=== PATIENT | female | born 1970 | race Hispanic/Latino ===

== ENCOUNTER 2018-10-25 03:54 | Emergency (ER) | payer OTHER ==
[2018-10-25] MEDS ORDERED: ONDANSETRON HCL 4 MG/2 ML VIAL ONE (04:45)
[2018-10-25] MEDS ORDERED: SODIUM CHLORIDE 0.9% 1000ML 1,000 ML IV ONE (04:45)
[2018-10-25] MEDS ORDERED: MORPHINE SULFATE 4 MG/1ML SYG ONE (04:45)
[2018-10-25 05:06] LABS: BASOPHILS % (AUTO) 0.6 % (0.0-5.0); EOSINOPHILS % (AUTO) 1.4 % (0.0-8.0); LYMPHOCYTES % (AUTO) 26.3 % (21.0-51.0); MEAN CORPUSCULAR HEMOGLOBIN 29.1 pg (27.0-33.0); MEAN CORPUSCULAR HGB CONC 33.7 g/dL (32.0-36.0); MEAN CORPUSCULAR VOLUME 86.3 fL (79-99); MONOCYTES % (AUTO) 8.2 % (3.0-13.0); NEUTROPHILS % (AUTO) 63.5 % (40.0-77.0); PLATELET COUNT (AUTO) 286 K/uL (130-400); RED BLOOD CELL COUNT(AUTO) 5.21 MIL/uL (4.00-5.50); RED CELL DISTRIBUTION WIDTH 12.8 % (11.0-15.5); WHITE BLOOD COUNT (AUTO) 11.1 K/uL (4.8-10.8)
[2018-10-25 05:28] LABS: BILIRUBIN,DIRECT 0.1 mg/dL (0.0-0.3); BILIRUBIN,TOTAL 0.5 mg/dL (0.2-1.0); CREATININE 0.6 mg/dL (0.5-1.5); TOTAL PROTEIN, SERUM 6.5 g/dL (6.0-8.3)
[2018-10-25] MEDS ORDERED: MAGNESIUM OXIDE 400 MG TABLET PO ONE (06:12)
[2018-10-25] MEDS ORDERED: POTASSIUM BICARB/CIT AC 25 MEQ TABLET.EFF ONE (06:13)
[2018-10-25] MEDS ORDERED: KETOROLAC TROMETHAMINE 60 MG/2 ML VIAL ONE (06:41)
== END 2018-10-25 07:19 | disposition home or self-care (01) ==
LOC: EDH 03:54
DX: K52.9 Noninfective gastroenteritis and colitis, unspecified (principal); E11.9 Type 2 diabetes mellitus without complications; Z90.49 Acquired absence of other specified parts of digestive tract; Z98.890 Other specified postprocedural states; Z79.4 Long term (current) use of insulin
CPT/HCPCS: 36415; 74176; 80048; 80076; 83690; 85025; 96361; 96374; 96375; 99285; J1885; J2270; J2405; J7030

== ENCOUNTER 2018-10-27 07:38 | Inpatient (IN) | payer SELFPAY ==
[~2018-10-27] VITALS: Ht 152.4 cm; Wt 95.4 kg
[2018-10-27 08:09] LABS: BASOPHILS % (AUTO) 0.8 % (0.0-5.0); EOSINOPHILS % (AUTO) 2.1 % (0.0-8.0); HEMATOCRIT 41.9 % (36-48); LYMPHOCYTES % (AUTO) 27.3 % (21.0-51.0); MEAN CORPUSCULAR HEMOGLOBIN 29.2 pg (27.0-33.0); MEAN CORPUSCULAR HGB CONC 33.8 g/dL (32.0-36.0); MEAN CORPUSCULAR VOLUME 86.5 fL (79-99); MONOCYTES % (AUTO) 8.3 % (3.0-13.0); NEUTROPHILS % (AUTO) 61.5 % (40.0-77.0); NUCLEATED RED BLOOD CELLS 0.1 % (0.0-0.19); PLATELET COUNT (AUTO) 278 K/uL (130-400); RED BLOOD CELL COUNT(AUTO) 4.84 MIL/uL (4.00-5.50); WHITE BLOOD COUNT (AUTO) 7.7 K/uL (4.8-10.8)
[2018-10-27 08:41] LABS: CREATININE 0.6 mg/dL (0.5-1.5); POTASSIUM 3.6 mmol/L (3.5-5.1)
[2018-10-27] MEDS ORDERED: ONDANSETRON HCL 4 MG/2 ML VIAL ONE (08:43)
[2018-10-27] MEDS ORDERED: MORPHINE SULFATE 4 MG/1ML SYG ONE (08:43)
[2018-10-27] MEDS ORDERED: SODIUM CHLORIDE 0.9% 1000ML 1,000 ML IV ONE (08:44)
[2018-10-27 08:47] LABS: ALBUMIN 2.6 g/dL (3.5-5.0); BILIRUBIN,TOTAL 0.3 mg/dL (0.2-1.0); TOTAL PROTEIN, SERUM 6.3 g/dL (6.0-8.3)
[2018-10-27 08:48] LABS: APPEARANCE,URINE SL CLOUDY (CLEAR); BILIRUBIN,URINE NEGATIVE (NEGATIVE); COLOR,URINE YELLOW (YELLOW); GLUCOSE, URINE (UA) >=1000 mg/dL (NEGATIVE); HCG,QUAL RESULT NEGATIVE (NEGATIVE); KETONES,URINE NEGATIVE (NEGATIVE); LEUKOCYTE ESTERASE ,URINE NEGATIVE (NEGATIVE); NITRATE,URINE NEGATIVE (NEGATIVE); OCCULT BLOOD,URINE MODERATE (NEGATIVE); PROTEIN,URINE NEGATIVE (NEGATIVE)
[2018-10-27 09:12] LABS: BACTERIA,URINE Many /HPF (None Seen); RBC,URINE 0-1 /HPF (0-1); SQUAMOUS EPITHELIAL CELL,UR Moderate /HPF (0-2)
[2018-10-27] MEDS ORDERED: IOHEXOL-350 75 ML VIAL IV ONE (09:24)
[2018-10-27] MEDS ORDERED: DIATR MEGLU/DIATRIZOATE SODIUM 30 ML BOTTLE ONE ×2 (09:41→09:44)
[2018-10-27] MEDS ORDERED: ZOSYN 3.375GM+NS 50ML 50 ML IV ONE (11:11)
[2018-10-27] MEDS: METRONIDAZOLE 500MG/100ML BAG 100 ML IV SCH ×2 (11:15→20:31)
[2018-10-27] MEDS ORDERED: HYDROCODONE/ACETAMINOPHEN 5/325 MG TAB PO PRN (11:15)
[2018-10-27] MEDS: INSULIN HUMULIN R 100 UNIT/ML 3ML SQ SCH ×3 (11:30→20:47)
[2018-10-27] MEDS ORDERED: MORPHINE SULFATE 2 MG/ML 1ML SYG ONE (11:35)
[2018-10-27] MEDS ORDERED: VANCOMYCIN 1GM+NS 250ML 250 ML IV ONE (12:33)
[2018-10-27 14:30] VITALS: BP 136/79
--- NOTE | 2018-10-27 14:35 | NUR ---
REPORT RECEIVED FROM DAVID HERNÁNDEZ (ED). PATIENT ADMITTED FOR C/O RECTAL PAIN. PATIENT ADMITTED UNDER DR. MCCLURE'S SERVICES FOR PERIANAL INFLAMMATION AND UNCONTROLLED DM. DR. PURI CONSULTED. ER PHYSICIAN SPOKE WITH DR. PURI. DR. PURI TO FOLLOW UP WITH PATIENT ONCE ON MED/SURG FLOOR. PATIENT STABLE AT THIS TIME.
[2018-10-27 16:00] VITALS: BP 129/72
[2018-10-27] MEDS ORDERED: INSU100I35 SQ ×2 (18:26)
[2018-10-27 19:12] VITALS: BP 135/77
[2018-10-27] MEDS ORDERED: SODIUM CHLORIDE 0.9% 250 ML IV ONE (20:29)
[2018-10-27] MEDS: FAMOTIDINE 20MG TAB 20 MG TAB PO SCH (20:32)
[2018-10-28] VITALS (23 sets, daily range): BP systolic 90–145; BP diastolic 45–81
[2018-10-28] MEDS ORDERED: KETOROLAC TROMETHAMINE 15MG/ML IV SCH (02:00)
[2018-10-28] MEDS ORDERED: ONDANSETRON HCL 4 MG/2 ML VIAL IVP PRN (02:00)
[2018-10-28] MEDS ORDERED: KETOROLAC TROMETHAMINE 15MG/ML ONE (02:04)
[2018-10-28] MEDS: METRONIDAZOLE 500MG/100ML BAG 100 ML IV SCH ×3 (03:16→19:39)
[2018-10-28 05:18] LABS: HEMATOCRIT 36.9 % (36-48); MEAN CORPUSCULAR HEMOGLOBIN 29.8 pg (27.0-33.0); MEAN CORPUSCULAR VOLUME 87.6 fL (79-99); PLATELET COUNT (AUTO) 274 K/uL (130-400); RED BLOOD CELL COUNT(AUTO) 4.21 MIL/uL (4.00-5.50); RED CELL DISTRIBUTION WIDTH 12.6 % (11.0-15.5); WHITE BLOOD COUNT (AUTO) 8.2 K/uL (4.8-10.8)
[2018-10-28 05:23] LABS: CREATININE 0.6 mg/dL (0.5-1.5); POTASSIUM 3.7 mmol/L (3.5-5.1)
[2018-10-28] MEDS ORDERED: SODIUM CHLORIDE 0.9% 1000ML 1,000 ML IV ONE (05:58)
[2018-10-28] MEDS ORDERED: LIDOCAINE PF 2% 5ML ABBOJECT ONE (06:14)
[2018-10-28] MEDS ORDERED: FENTANYL CITRATE PF 50 MCG/1 ML 2ML VIAL ONE (06:14)
[2018-10-28] MEDS ORDERED: PROPOFOL 10 MG/ML 20ML VIAL IV ONE ×2 (06:14→06:38)
[2018-10-28] MEDS ORDERED: MIDAZOLAM HCL 1 MG/ML 2ML VIAL ONE (06:22)
[2018-10-28] MEDS ORDERED: BUPIVACAINE/PF 0.5% 30ML VIAL ONE (06:26)
[2018-10-28] MEDS ORDERED: LIDOCAINE 1%-EPI 1:100,000 20 ML VIAL IJ ONE (06:26)
[2018-10-28] MEDS ORDERED: KETOROLAC TROMETHAMINE 30MG/ML ONE (06:40)
[2018-10-28] MEDS: INSULIN HUMULIN R 100 UNIT/ML 3ML SQ SCH ×4 (07:30→20:57)
[2018-10-28] MEDS: FAMOTIDINE 20MG TAB 20 MG TAB PO SCH ×2 (08:59→19:39)
[2018-10-28] MEDS: ENOXAPARIN SODIUM 40 MG/0.4 ML SYRINGE SQ SCH (09:00)
[2018-10-28] MEDS ORDERED: ACETAMINOPHEN 325 MG TAB PO PRN ×2 (09:15→13:15)
--- NOTE | 2018-10-28 11:20 | NUR ---
REGINO Leyva met with pt's daughter Codi Valdovinos [phone] who was at bedside, pt sleeping soundly. Per daughter, pt lives with her CURT Dunham, works in [employer] and is independent of [employer], drives, has no DME or in home care services. Pt has no PCP or rx coverage. Plan is home at [place] Addendum: 10/28/18 at 1123 by MADDI COOL Amended: Links added.
[2018-10-28] MEDS: TRAMADOL HCL 50 MG TABLET PO PRN (12:33)
--- NOTE | 2018-10-28 19:40 | NUR ---
ASSESS SHIFT ASSESSMENT DONE, PLEASE REFER TO CHART. DUE MEDS ADMINISTERED, TOLERATED WELL. KEPT RESTED IN BED. CALL LIGHT WITHIN REACH. WILL MONITOR PT. Addendum: 10/29/18 at 0023 by JENA ESPARZA RN RN Amended: Links added.
--- NOTE | 2018-10-28 20:40 | NUR ---
SHOWER FINISHED IV ANTIBIOTICS INFUSION, SALINE LOCKED PT. PT REQUESTED TO SHOWER. PCP MADE AWARE TO ASSIST PT.
[2018-10-29] VITALS: BP 117/58
[2018-10-29] MEDS: METRONIDAZOLE 500MG/100ML BAG 100 ML IV SCH ×3 (02:45→19:42)
--- NOTE | 2018-10-29 02:45 | NUR ---
MEDS PT RESTING WELL. NO DISTRESS NOTED. NO CONCERNS VERBALIZED. DUE IV FLAGYL HUNG. KEPT RESTED AND COMFORTABLE. CALL LIGHT WITHIN REACH. WILL MONITOR PT.
[2018-10-29 04:00] VITALS: BP 112/59
[2018-10-29 05:02] LABS: BASOPHILS % (AUTO) 0.6 % (0.0-5.0); EOSINOPHILS % (AUTO) 2.7 % (0.0-8.0); HEMATOCRIT 37.2 % (36-48); LYMPHOCYTES % (AUTO) 38.2 % (21.0-51.0); MEAN CORPUSCULAR HEMOGLOBIN 29.6 pg (27.0-33.0); MEAN CORPUSCULAR HGB CONC 33.6 g/dL (32.0-36.0); MEAN CORPUSCULAR VOLUME 88.2 fL (79-99); MONOCYTES % (AUTO) 10.1 % (3.0-13.0); NEUTROPHILS % (AUTO) 48.4 % (40.0-77.0); PLATELET COUNT (AUTO) 326 K/uL (130-400); RED BLOOD CELL COUNT(AUTO) 4.21 MIL/uL (4.00-5.50); RED CELL DISTRIBUTION WIDTH 13.2 % (11.0-15.5); WHITE BLOOD COUNT (AUTO) 6.3 K/uL (4.8-10.8)
[2018-10-29 05:08] LABS: CREATININE 0.6 mg/dL (0.5-1.5); POTASSIUM 3.6 mmol/L (3.5-5.1)
[2018-10-29] MEDS: INSULIN HUMULIN R 100 UNIT/ML 3ML SQ SCH ×4 (06:04→22:26)
--- NOTE | 2018-10-29 06:30 | NUR ---
WALK PT SEEN WALKING THE HALLWAY WITH SPOUSE. TOLERATING ACTIVITY WELL. FOR MORE CARE.
[2018-10-29] MEDS: TRAMADOL HCL 50 MG TABLET PO PRN (06:54)
[2018-10-29 07:38] VITALS: BP 146/77
[2018-10-29] MEDS: FAMOTIDINE 20MG TAB 20 MG TAB PO SCH ×2 (09:24→20:23)
[2018-10-29] MEDS: ENOXAPARIN SODIUM 40 MG/0.4 ML SYRINGE SQ SCH (09:25)
[2018-10-29 11:40] VITALS: BP 126/69
[2018-10-29 16:32] VITALS: BP 153/74
[2018-10-29 20:00] VITALS: BP 135/80
[2018-10-30] VITALS: BP 132/71
[2018-10-30] MEDS: TRAMADOL HCL 50 MG TABLET PO PRN (00:07)
[2018-10-30] MEDS: METRONIDAZOLE 500MG/100ML BAG 100 ML IV SCH ×2 (03:54→10:14)
[2018-10-30 04:11] VITALS: BP 120/65
[2018-10-30] MEDS: INSULIN HUMULIN R 100 UNIT/ML 3ML SQ SCH ×2 (05:53→12:08)
[2018-10-30 06:08] LABS: HEMATOCRIT 38.3 % (36-48); MEAN CORPUSCULAR HEMOGLOBIN 30.3 pg (27.0-33.0); MEAN CORPUSCULAR HGB CONC 34.9 g/dL (32.0-36.0); NUCLEATED RED BLOOD CELLS 0.1 % (0.0-0.19); PLATELET COUNT (AUTO) 330 K/uL (130-400); RED BLOOD CELL COUNT(AUTO) 4.41 MIL/uL (4.00-5.50); RED CELL DISTRIBUTION WIDTH 12.7 % (11.0-15.5); WHITE BLOOD COUNT (AUTO) 5.9 K/uL (4.8-10.8)
[2018-10-30 06:24] LABS: CREATININE 0.6 mg/dL (0.5-1.5); POTASSIUM 3.4 mmol/L (3.5-5.1)
[2018-10-30 08:00] VITALS: BP 128/59
[2018-10-30] MEDS: FAMOTIDINE 20MG TAB 20 MG TAB PO SCH (08:43)
[2018-10-30] MEDS: ENOXAPARIN SODIUM 40 MG/0.4 ML SYRINGE SQ SCH (08:44)
--- NOTE | 2018-10-30 09:00 | NUR ---
HYGEINE: TOOK SHOWER.
--- NOTE | 2018-10-30 09:20 | NUR ---
ACTIVITY: AMB IN HALLWAY.
--- NOTE | 2018-10-30 09:30 | NUR ---
PERIANAL ABSCESS: PT WASHED PERIANAL AREA WITH SOAP AND H20. COVERED WITH 4x4 GAUZE. MICHAELA WELL. MINIMAL PINK DRAINAGE. DENIES PAIN TO AREA. STATES TENDER WHEN SHE SITS UP.
--- NOTE | 2018-10-30 10:04 | NUR ---
ASSESSMENT: JAMESON AGUDELOP ASSESSED PT AND SBAR REPORT GIVEN, ASSESSED PT AND DISCUSSED POC FOR DISCHARGE HOME ON [address] FOR 7DAYS AND PT VERBALIZES UNDERSTANDING AND AGREES WITH POC.
[2018-10-30] MEDS ORDERED: LEVO500T2 PO (10:09)
--- NOTE | 2018-10-30 10:41 | NUR ---
DISCHARGE: INFORMED DR PURI'S PA KI CORTES ABOUT PT BEING DISCHARGED HOME AND ORDERS RECEIVED TO HAVE PT FOLLOW UP IN [address] PURI. PTMADE AWARE.
[2018-10-30 12:00] VITALS: BP 126/61
--- NOTE | 2018-10-30 15:30 | NUR ---
DISCHARGE: DISCHARGE INSTRUCTIONS GIVEN TO PT ON SELF CARE POST I&D OF PERIANAL ABSCESS,HOW TO CARE FOR IT, KEEP IT CLEAN,DIABETES CONTROL MONITOR BLOOD SUGARS AND MAINTAIN UNDER CONTROL MUCH POSSIBLE. GAVE PT PERIMETERS ON NORMAL BLOOD SUGARS. INSTRUCTED ON DIABETIC DIET, MONITOR CARBOHYDRATES AND INCREASE FLUID INTAKE. TO CONTINUE WITH INSULIN PRIOR TO ADMISSION. INSTRUCTED ON S&S OF LOW AND HIGH BLOOD SUGAR,AND WHAT TO DO. TO FOLLOW UP WITH Marcia MARTINS FOR DR PURI ON 11/14 AT 1400 OR SOONER IF NEEDED. PT HAS NO PCP,GAVE LIST WITH FAMILY PROVIDERS, INSTRUCTED TO CALL AND MAKE FOLLOW UP APPT SOON POSSIBLE. UNDERSTANDING VERBALIZED AND COPIES OF ALL INSTRUCTIONS GIVEN TO PT.
--- NOTE | 2018-10-30 15:45 | NUR ---
DISCHARGE: DISCHARGED HOME VIA W/C TO PRIVATE CAR WITH FAMILY.
== END 2018-10-30 15:52 | disposition home or self-care (01) | DRG 393 ==
LOC: EDH 07:38 → EDHIP 07:39 → 3CH 14:18
PROVIDERS: ADMIT Hospitalist; ATTEND Hospitalist
PROC: 0D9Q3ZZ Drainage of Anus, Percutaneous Approach (ICD-10-PCS; principal; 2018-10-28 06:34)
DX: K61.0 Anal abscess (principal); J15.0 Pneumonia due to Klebsiella pneumoniae; Z68.41 Body mass index [BMI] 40.0-44.9, adult; E11.65 Type 2 diabetes mellitus with hyperglycemia; E66.9 Obesity, unspecified; K62.89 Other specified diseases of anus and rectum; B95.1 Streptococcus, group B, as the cause of diseases classified elsewhere; Z90.49 Acquired absence of other specified parts of digestive tract
CPT/HCPCS: 36415; 72193; 80048; 80053; 81001; 81025; 82948; 83690; 85025; 85027; 85651; 87040; 87070; 87076; 87077; 87186; 87205; A6266; G0378; J1650; J1815; J1885; J2001; J2250; J2270; J2405; J2543; J2704; J3010; J3370; J3490; J7030; Q9963; Q9967

== ENCOUNTER 2021-08-20 11:13 | Emergency (ER) | payer OTHER ==
[~2021-08-20] VITALS: Ht 152.4 cm; Wt 81.6 kg
[~2021-08-20 11:13] MED LIST: INSU100I35 SQ; LEVO500T2 PO
[2021-08-20] MEDS ORDERED: MECLIZINE HCL 25 MG TABLET ONE (11:47)
[2021-08-20] MEDS ORDERED: MECLIZINE HCL 12.5 MG TABLET PO ONE (12:00)
[2021-08-20] MEDS ORDERED: AMOX/CLAV 875/125MG TAB PO ONE (12:00)
[2021-08-20 12:32] VITALS: BP 135/84
[2021-08-20] MEDS ORDERED: INSULIN HUMULIN R 100 UNIT/ML 3ML ONE (12:45)
[2021-08-20] MEDS ORDERED: AMOX1TAB16 PO (12:49)
[2021-08-20] MEDS ORDERED: MECL-226 PO (12:49)
== END 2021-08-20 12:56 | disposition home or self-care (01) ==
LOC: EDH 11:13
DX: R42 Dizziness and giddiness (principal); H66.92 Otitis media, unspecified, left ear; E11.9 Type 2 diabetes mellitus without complications; Z79.4 Long term (current) use of insulin; Z98.890 Other specified postprocedural states
CPT/HCPCS: 82948; 93005; 96372; 99284; J1815

== ENCOUNTER 2021-08-25 14:47 | Emergency (ER) | payer OTHER ==
[~2021-08-25 14:47] MED LIST changes: +AMOX1TAB16 PO; +MECL-226 PO
[2021-08-25] MEDS ORDERED: 0.9%NACL 1000ML 1,000 ML IV ONE (15:30)
[2021-08-25 15:40] LABS: HEMATOCRIT 48.1 % (36-48); MEAN CORPUSCULAR HEMOGLOBIN 29.6 pg (27.0-33.0); MEAN CORPUSCULAR HGB CONC 34.3 g/dL (32.0-36.0); MEAN CORPUSCULAR VOLUME 86.4 fL (79-99); PLATELET COUNT (AUTO) 337 K/uL (130-400); RED BLOOD CELL COUNT(AUTO) 5.57 MIL/uL (4.00-5.50); RED CELL DISTRIBUTION WIDTH 11.8 % (11.0-15.5); WHITE BLOOD COUNT (AUTO) 9.9 K/uL (4.8-10.8)
[2021-08-25 15:54] LABS: CREATININE 0.7 mg/dL (0.5-1.5); LYMPHOCYTES % (AUTO) 28.2 % (21.0-51.0); POTASSIUM 4.9 mmol/L (3.5-5.1)
[2021-08-25 15:55] LABS: BASOPHILS % (AUTO) 0.6 % (0.0-5.0); EOSINOPHILS % (AUTO) 1.3 % (0.0-8.0); MONOCYTES % (AUTO) 10.7 % (3.0-13.0)
[2021-08-25] MEDS ORDERED: ONDANSETRON 4MG INJ IVP ONE (16:00)
[2021-08-25] MEDS ORDERED: ACETAMINOPHEN 500 MG TABLET PO ONE (16:00)
[2021-08-25] MEDS ORDERED: MECLIZINE HCL 25 MG TABLET PO ONE (16:00)
[2021-08-25 16:01] LABS: ALBUMIN 3.6 g/dL (3.5-5.0); BILIRUBIN,TOTAL 0.5 mg/dL (0.2-1.0); TOTAL PROTEIN, SERUM 6.9 g/dL (6.0-8.3)
[2021-08-25] MEDS ORDERED: 0.9%NACL 1000ML 1,000 ML IV SCH (16:30)
[2021-08-25 17:36] LABS: APPEARANCE,URINE CLEAR (CLEAR); BILIRUBIN,URINE NEGATIVE (NEGATIVE); COLOR,URINE YELLOW (YELLOW); GLUCOSE, URINE (UA) >=1000 mg/dL (NEGATIVE); KETONES,URINE NEGATIVE (NEGATIVE); LEUKOCYTE ESTERASE ,URINE NEGATIVE (NEGATIVE); NITRATE,URINE NEGATIVE (NEGATIVE); OCCULT BLOOD,URINE TRACE-INTACT (NEGATIVE); PROTEIN,URINE 100 mg/dL (NEGATIVE); UROBILINOGEN,URINE 0.2 mg/dL (0.2-1.0)
[2021-08-25 17:55] LABS: BACTERIA,URINE Rare /HPF (None Seen); RBC,URINE 0-1 /HPF (0-1); WBC,URINE 0-1 /HPF (0-1); YEAST,URINE BUDDING Few /HPF (None Seen)
[2021-08-25 17:56] LABS: MUCUS,URINE Few LPF (None Seen); SQUAMOUS EPITHELIAL CELL,UR Moderate /HPF (0-2)
[2021-08-25] MEDS ORDERED: MECL-226 PO (19:28)
[2021-08-25] MEDS ORDERED: ONDA4TAB10 PO (19:28)
[2021-08-25 19:33] VITALS: BP 148/80
== END 2021-08-25 19:43 | disposition home or self-care (01) ==
LOC: EDH 14:47
DX: E11.65 Type 2 diabetes mellitus with hyperglycemia (principal); R42 Dizziness and giddiness; E86.0 Dehydration; H74.8X3 Other specified disorders of middle ear and mastoid, bilateral; Z20.822 Contact with and (suspected) exposure to COVID-19; Z90.721 Acquired absence of ovaries, unilateral
CPT/HCPCS: 36415; 70450; 71045; 80053; 81001; 83605; 84484; 85025; 87040 ×2; 87088; 87635; 87804 ×2; 93005; 96361; 96374; 99285; C9803; J2405; J7030 ×2

== ENCOUNTER → 2023-03-19 | Outpatient (CLI) | payer OTHER ==
[~2023-03-19] MED LIST changes: +ONDA4TAB10 PO
[2023-03-19 09:35] LABS: CREATININE 0.7 mg/dL (0.5-1.5)
== END | disposition home or self-care (01) ==
LOC: LAB 08:22
PROVIDERS: ATTEND Otolaryngology Plastic Surgery within the Head & Neck
DX: H90.3 Sensorineural hearing loss, bilateral (principal)
CPT/HCPCS: 36415; 82565; 84520

== ENCOUNTER → 2023-03-27 | Outpatient (CLI) | payer OTHER ==
[~2023-03-27] MED LIST changes: +GADOTERATE MEGLUMINE 10 MMOL/20 ML VIAL IV ONE
== END | disposition home or self-care (01) ==
LOC: RAH 10:36
PROVIDERS: ATTEND Otolaryngology Plastic Surgery within the Head & Neck
DX: H90.3 Sensorineural hearing loss, bilateral (principal)
CPT/HCPCS: 70553; A9575